=== PATIENT | male | born 1980 ===

== ENCOUNTER 2018-03-07 14:44 | Emergency (ER) | payer OTHER ==
[2018-03-07] MEDS ORDERED: Labetalol 5 mg/ml Inj 20ML IV STA (15:12)
--- NOTE | 2018-03-07 15:15 | ED PDOC ---
Arrival/HPI - General Time Seen by Provider: 03/07/18 15:02 Historian: Patient, EMS, Police - History of Present Illness Narrative History of Present Illness (Text): 03/07/18 15:12 A 38 year old male, who denies any past medical history, brought into the emergency department by [place] [employer] and EMS for further evaluation concerning altered mental status. As per report, patient was found confused with a high blood pressure prior to arrival. Patient denies any complaints at this time. He denies any drug or alcohol use today. HPI and ROS limited due to patients state. Time/Duration: Prior to Arrival Symptom Course: Unchanged Context: Other Past Medical History - Provider Review Nursing Documentation Reviewed: Yes Family/Social History - Physician Review Nursing Documentation Reviewed: Yes Family/Social History: No Known Family HX Allergies/Home Meds Allergies/Adverse Reactions: Allergies No Known Allergies Allergy (Verified 05/30/17 02:47) Home Medications: Home Meds Medication Instructions Recorded Confirmed Unobtainable 03/07/18 03/07/18 Review of Systems - Review of Systems Systems not reviewed;Unavailable: Acuity of Condition Physical Exam Vital Signs Reviewed: Yes Vital Signs Temp Pulse Resp BP Pulse Ox 03/07/18 17:45 100 H 18 156/88 H 98 03/07/18 15:00 98.2 F 116 H 18 182/94 H 98 Temperature: Afebrile Blood Pressure: Hypertensive Pulse: Tachycardic Respiratory Rate: Normal Appearance: Positive for: Non-Toxic, Comfortable, Unkept Pain Distress: None Mental Status: Positive for: Alert and Oriented X 3, Confused, other (Flat affect) - Systems Exam Head: Present: Atraumatic, Normocephalic. No: Contusion, Swelling, Ecchymosis, Abrasion, Laceration Pupils: Present: PERRL Extroacular Muscles: Present: EOMI Conjunctiva: Present: Normal Ears: Present: Normal Mouth: Present: Moist Mucous Membranes Nose (External): Present: Atraumatic Nose (Internal): Present: Normal Inspection Neck: Present: Normal Range of Motion. No: MIDLINE TENDERNESS Respiratory/Chest: Present: Clear to Auscultation, Good Air Exchange. No: Respiratory Distress, Accessory Muscle Use Cardiovascular: Present: Regular Rate and Rhythm, Normal S1, S2. No: Murmurs Abdomen: No: Tenderness Upper Extremity: Present: Normal Inspection, Neurovascularly Intact. No: Cyanosis, Edema Lower Extremity: Present: Normal Inspection, Neurovascularly Intact. No: Edema Neurological: Present: GCS=15, CN II-XII Intact, Speech Normal, Motor Func Grossly Intact, Normal Sensory Function, Normal Cerebellar Funct Skin: Present: Warm, Dry, Normal Color. No: Rashes Psychiatric: Present: Alert, Oriented x 3, Other (Confused). No: Normal Affect (Flat affect) Medical Decision Making ED Course and Treatment: 03/07/18 15:12 Impression: A 38 year old male brought in for altered mental status and high blood pressure Differential Diagnosis included but are not limited to: AMS with suspected drug use Plan: -- Head CT -- Chest xray -- EKG -- Labs -- Urinalysis -- Haldol and Ativan -- Reassess and disposition Progress Notes: Patient's behavior appeared drug induced. He was not answering questions clearly and was confused with some of my line of questions. There is concern that patient may be a harm to himself due to his behavior and also because he had an elevated blood pressure in the setting of confusion. I tried to have patient cooperate with the care that we were providing him but he would not cooperate. He would not sit down and attempted to leave the ED. I ordered Ativan 2mg IM and Haldol 5mg IM stat. It was given to patient but then he tried to leave the ED. We had to calm him down but he would not cooperate. We added Ativan 2mg and Benadryl and placed patient in 4 point restraints. On reevaluation, patient continued to be alert awake and argumentation. He would not get a CT scan. There was concern for an ICH so it was necessary to get the CT stat. I was concerned that if restraints were removed he would be a harm to himself and others. Haldol 5mg IM given in addition. He finally relaxed. His father arrived and agreed to help him agree to a CT. Patient was taken to CT and completed the study. CT reviewed with no fracture or ICH. Patient's father stayed with him until he awoke from sleep. His father stated that now this is his baseline mental status. He would like to take his son home. Patient is AAOx3. He does not appear confused. He is walking with no ataxia and does not exhibit intoxication. I advised them to make sure he follows up with his primary care doctor and to return to the ED with any medical concerns he may have. - Lab Interpretations Lab Results: 03/07/18 15:50 03/07/18 15:50 Lab Results 03/07/18 15:54: POC Glucose (mg/dL) 88 03/07/18 15:50: Alcohol, Quantitative < 10 03/07/18 15:50: Salicylates < 1 L, Acetaminophen < 10.0 L 03/07/18 15:50: Sodium 148, Potassium 3.3 L, Chloride 108 H, Carbon Dioxide 13 L , Anion Gap 31 H, BUN 10, Creatinine 1.0, Est GFR ( Amer) > 60, Est GFR ( Non-Af Amer) > 60, Random Glucose 110, Calcium 9.8, Magnesium 2.3 H, Total Bilirubin 0.9, AST 49, ALT 32, Alkaline Phosphatase 119, Total Creatine Kinase 499 H, CK-MB (CK-2) 2.8, CK-MB (CK-2) % Cancelled, Total Protein 9.1 H, Albumin 5.4 H, Globulin 3.8, Albumin/Globulin Ratio 1.4 03/07/18 15:50: WBC 9.7, RBC 5.31, Hgb 16.9, Hct 47.7, MCV 89.8, MCH 31.8, MCHC 35.4, RDW 12.6, Plt Count 306, MPV 9.6, Gran % 70.1 H, Lymph % (Auto) 22.0, [place] % (Auto) 7.2 H, Eos % (Auto) 0.6 L, Baso % (Auto) 0.1, Gran # 6.80 H, Lymph # (Auto) 2.1, [place] # (Auto) 0.7 H, Eos # (Auto) 0.1, Baso # (Auto) 0.01 I have reviewed the lab results: Yes - RAD Interpretation Radiology Orders: 03/07/18 15:11 HEAD W/O CONTRAST [CT] Stat CHEST PORTABLE [RAD] Stat - Medication Orders Current Medication Orders: Discontinued Medications Diphenhydramine HCl (Benadryl) 50 mg IM STAT STA Stop: 03/07/18 15:41 Last Admin: 03/07/18 15:37 Dose: 50 mg IM Administration Charges Document 03/07/18 15:37 HI (Rec: 03/07/18 15:46 HI [id number]) Injection Site MAR Injection Site Right Deltoid Charges for Administration # of IM Administrations 1 Haloperidol Lactate (Haldol) 5 mg IM STAT STA Stop: 03/07/18 15:14 Last Admin: 03/07/18 15:20 Dose: 5 mg IM Administration Charges Document 03/07/18 15:20 HI (Rec: 03/07/18 15:49 HI [id number]) Injection Site MAR Injection Site Left Deltoid Charges for Administration # of IM Administrations 1 Haloperidol Lactate (Haldol) 5 mg IM STAT STA Stop: 03/07/18 16:32 Last Admin: 03/07/18 16:36 Dose: 5 mg IM Administration Charges Document 03/07/18 16:36 HI (Rec: 03/07/18 16:36 HI [id number]) Injection Site MAR Injection Site Right Deltoid Charges for Administration # of IM Administrations 1 Lorazepam (Ativan) 2 mg IM ONCE ONE PRN Reason: Protocol Stop: 03/07/18 15:13 Last Admin: 03/07/18 15:20 Dose: 2 mg IM Administration Charges Document 03/07/18 15:20 HI (Rec: 03/07/18 15:49 HI [id number]) Injection Site MAR Injection Site Left Deltoid Charges for Administration # of IM Administrations 1 Lorazepam (Ativan) 2 mg IM ONCE ONE Stop: 03/07/18 15:40 Last Admin: 03/07/18 15:37 Dose: 2 mg IM Administration Charges Document 03/07/18 15:37 HI (Rec: 03/07/18 15:46 HI [id number]) Injection Site MAR Injection Site Left Deltoid Charges for Administration # of IM Administrations 1 Potassium Chloride (K-Dur 20 Meq Er Tab) 40 meq PO STAT STA Stop: 03/07/18 17:25 Last Admin: 03/07/18 18:31 Dose: 40 meq - Scribe Statement The provider has reviewed the documentation as recorded by the Derick Acosta Provider Scribe Attestation: All medical record entries made by the Scribe were at my direction and personally dictated by me. I have reviewed the chart and agree that the record accurately reflects my personal performance of the history, physical exam, medical decision making, and the department course for this patient. I have also personally directed, reviewed, and agree with the discharge instructions and disposition. Disposition/Present on Arrival - Present on Arrival Any Indicators Present on Arrival: No - Disposition Have Diagnosis and Disposition been Completed?: Yes Diagnosis: Hypertension, Drug use, Altered mental status Disposition: HOME/ ROUTINE Disposition Time: 17:45 Patient Plan: Discharge Condition: IMPROVED Discharge Instructions (ExitCare): High Blood Pressure in Adults, Altered Mental Status, Drug Abuse and Drug Addiction (DC) Additional Instructions: ASHWIN LESLIE, thank you for letting us take care of you today. Your provider was Hayden Bashir DO and you were treated for Altered Mental Status, Hypertension, Drug Use. The emergency medical care you received today was directed at your acute symptoms. If you were prescribed any medication, please fill it and take as directed. It may take several days for your symptoms to resolve. Return to the Emergency Department if your symptoms worsen, do not improve, or if you have any other problems. Please contact your doctor or call one of the physicians/clinics you have been referred to that are listed on the Patient Visit Information form that is included in your discharge packet. Bring any paperwork you were given at discharge with you along with any medications you are taking to your follow up visit. Our treatment cannot replace ongoing medical care by a primary care provider outside of the emergency department. Thank you for allowing the [facility] team to be part of your care today. If you had an X-Ray or CT scan: A Radiologist will review the ED reading if any change in treatment is needed we will contact you. If you had a blood, urine, or wound culture: It will take several days for the results, if any change in treatment is needed we will contact you. If you had an STI test: It will take 48 hours for the results. Please call after 1 week if you have not heard back. Referrals: [facility] [Outside] - Follow up with primary Forms: [employer] (German)
[2018-03-07] MEDS ORDERED: DiphenhydrAMINE 50 mg/ml Inj ONE (15:36)
[2018-03-07 15:40] VITALS: RESP 18; TEMP 98.2; O2SAT 98
[2018-03-07] MEDS ORDERED: DiphenhydrAMINE 50 mg/ml Inj IM STA (15:40)
[2018-03-07 16:12] LABS: ACETAMINOPHEN < 10.0 ug/ml (10.0-20.0); SALICYLATE < 1 mg/dL (2.0-20.0)
[2018-03-07 16:14] LABS: ALB/GLOB RATIO 1.4 (1.1-1.8)
[2018-03-07 16:15] LABS: ALBUMIN 5.4 g/dL (3.0-4.8); ALT/SGPT 32 U/L (7-56); AST/SGOT 49 U/L (17-59); BLOOD UREA NITROGEN 10 mg/dL (7-21); CALCIUM 9.8 mg/dL (8.4-10.5); GFR AFRICAN-AMERICAN > 60; GFR NON-AFRICAN AMERICAN > 60
[2018-03-07 16:32] LABS: BASO # 0.01 K/mm3 (0.0-2.0); BASO % 0.1 % (0.0-3.0); EOS # 0.1 (0.0-0.7); EOS % 0.6 % (1.5-5.0); GRAN # 6.8 (1.4-6.5); GRAN % 70.1 % (50.0-68.0); HEMOGLOBIN 16.9 g/dL (14.0-18.0); LYMPH # 2.1 (1.2-3.4); MEAN CELL VOLUME 89.8 fl (80.0-105.0); MEAN CORPUSCULAR HEMOGLOBIN 31.8 pg (25.0-35.0); MEAN CORPUSCULAR HGB CONC 35.4 g/dl (31.0-37.0); MEAN PLATELET VOLUME 9.6 fl (7.0-11.0); MONO # 0.7 (0.1-0.6); MONO % 7.2 % (1.0-6.0); RBC 5.31 10^6/uL (3.5-6.1); RED CELL DISTRIBUTION WIDTH 12.6 % (11.5-14.5); WHITE BLOOD COUNT 9.7 10^3/ul (4.5-11.0)
[2018-03-07 16:37] LABS: CK-MB 2.8 ng/mL (0.0-3.6)
--- NOTE | 2018-03-07 16:52 | RAD ---
Date of service: 03/07/2018 HISTORY: hyper tens urgency COMPARISON: No prior. FINDINGS: LUNGS: No active pulmonary disease. PLEURA: No significant pleural effusion identified, no pneumothorax apparent. CARDIOVASCULAR: No radiographic findings to suggest acute or significant cardiovascular disease. OSSEOUS STRUCTURES: No significant abnormalities. VISUALIZED UPPER ABDOMEN: Normal. OTHER FINDINGS: None. IMPRESSION: No active disease.
[2018-03-07] MEDS ORDERED: Potassium Chloride 20 mEq ER Tab PO STA (17:24)
--- NOTE | 2018-03-07 17:33 | CT ---
Date of service: 03/07/2018 PROCEDURE: CT HEAD WITHOUT CONTRAST. HISTORY: ams/hypertensive/psych/drug use COMPARISON: None available. TECHNIQUE: Axial computed tomography images were obtained through the head/brain without intravenous contrast. Radiation dose: Total exam DLP = 1020.0 mGy-cm. This CT exam was performed using one or more of the following dose reduction techniques: Automated exposure control, adjustment of the mA and/or kV according to patient size, and/or use of iterative reconstruction technique. FINDINGS: HEMORRHAGE: No intracranial hemorrhage. BRAIN: No mass effect or edema. No atrophy or chronic microvascular ischemic changes. VENTRICLES: Unremarkable. No hydrocephalus. CALVARIUM: Unremarkable. PARANASAL SINUSES: Unremarkable as visualized. No significant inflammatory changes. MASTOID AIR CELLS: Unremarkable as visualized. No inflammatory changes. OTHER FINDINGS: None. IMPRESSION: No acute intracranial pathology.
[2018-03-07 19:55] VITALS: BP 156/88; PULSE 100
== END 2018-03-07 17:45 | disposition home or self-care (01) ==
LOC: ED 14:44 → MERGE 14:44 → ED 17:45
DX: R41.82 Altered mental status, unspecified (principal); I10 Essential (primary) hypertension; F19.90 Other psychoactive substance use, unspecified, uncomplicated
CPT/HCPCS: 70450; 71045; 80053; 80320; 80329; 82550; 82553; 82948; 83735; 85025; 96372; 99285; J1200; J1630; J2060